=== PATIENT | male | born 1970 | race Caucasian/White ===

== ENCOUNTER 2016-08-02 09:33 | Emergency (ER) | payer SELFPAY | END 2016-08-02 09:58 | disposition home or self-care (01) | LOC: BURERS 09:33 | DX: H04.301 Unspecified dacryocystitis of right lacrimal passage (principal); I10 Essential (primary) hypertension; F17.210 Nicotine dependence, cigarettes, uncomplicated; Z79.899 Other long term (current) drug therapy | CPT/HCPCS: 99283 ==

== ENCOUNTER 2016-08-04 08:08 | Emergency (ER) | payer SELFPAY ==
[2016-08-04] MEDS ORDERED: cefTRIAXone\\ROCEPHIN 1 GM VIAL ONE (08:23)
[2016-08-04] MEDS ORDERED: Ketorolac Tromethamine 60 MG/2 ML VIAL ONE (08:31)
== END 2016-08-04 08:40 | disposition home or self-care (01) ==
LOC: BURERS 08:08
DX: H00.031 Abscess of right upper eyelid (principal); I10 Essential (primary) hypertension; J44.9 Chronic obstructive pulmonary disease, unspecified; F17.210 Nicotine dependence, cigarettes, uncomplicated; F17.220 Nicotine dependence, chewing tobacco, uncomplicated
CPT/HCPCS: 87070; 87205; 96372; J0696; J1885; J2001

== ENCOUNTER 2016-08-06 11:10 | Emergency (ER) | payer SELFPAY ==
[2016-08-06] MEDS ORDERED: Lidocaine 1% w/Epinephrine 1:100K 30 ML VIAL ONE (11:27)
[2016-08-06 12:07] LABS: #Basophils 0.1 thou/uL (0.0-0.2); #Eosinphils 0.1 thou/uL (0.0-0.7); #Lymphocytes 1.5 thou/uL (1.20-3.40); #Monocytes 0.5 thou/uL (0.11-0.59); #Neutrophils 5.8 thou/uL (1.40-6.50); %Basophils 0.8 % (0.0-1.0); %Eosinophils 1.6 % (0.0-10.0); %Lymphocytes 19.3 % (21.0-51.0); %Monocytes 6.3 % (0.0-10.0); Hemoglobin 16.3 g/dL (14.0-18.0); Mean Corpuscular HGB CONC 33.4 g/dL (32.0-36.0); Mean Corpuscular Hemoglobin 30.3 pg (27.0-31.0); Mean Corpuscular Volume 90.7 fl (80.0-94.0); Mean Platelet Volume 8.7 fL (7.4-10.4); Platelet Count 214 thou/uL (130-400); RBC Distribution Width 13.4 % (11.5-14.5); Red Blood Cell (RBC) Count 5.39 mill/uL (4.70-6.10)
[2016-08-06 12:23] LABS: Anion Gap 12 mmol/L (10-20); BUN (Urea Nitrogen) 14 mg/dL (8.9-20.6); Calc. Creatinine Clearance 0 mL/min (70-130); Calcium 9.4 mg/dL (7.8-10.44); Carbon Dioxide 25 mmol/L (22-29); Chloride 104 mmol/L (98-107); Estimated GFR-MDRD Greater than 90; Glucose 133 mg/dL (70-105); Potassium 4.2 mmol/L (3.5-5.1); Sodium 137 mmol/L (136-145)
== END 2016-08-06 13:11 | disposition home or self-care (01) ==
LOC: BURERS 11:10
DX: H00.031 Abscess of right upper eyelid (principal); I10 Essential (primary) hypertension; J44.9 Chronic obstructive pulmonary disease, unspecified; F41.9 Anxiety disorder, unspecified; F17.210 Nicotine dependence, cigarettes, uncomplicated; F17.220 Nicotine dependence, chewing tobacco, uncomplicated; Z79.899 Other long term (current) drug therapy
CPT/HCPCS: 67700; 80048; 85025; 96365; J2001; J3370

== ENCOUNTER 2016-08-07 07:52 | Emergency (ER) | payer SELFPAY | END 2016-08-07 08:06 | disposition home or self-care (01) | LOC: BURERS 07:52 | DX: Z48.01 Encounter for change or removal of surgical wound dressing (principal); I10 Essential (primary) hypertension; J44.9 Chronic obstructive pulmonary disease, unspecified; F41.9 Anxiety disorder, unspecified; F17.220 Nicotine dependence, chewing tobacco, uncomplicated; Z79.82 Long term (current) use of aspirin; Z79.899 Other long term (current) drug therapy | CPT/HCPCS: 99282 ==

== ENCOUNTER 2018-04-12 12:33 | Emergency (ER) | payer SELFPAY | END 2018-04-12 13:28 | disposition home or self-care (01) | LOC: BURERS 12:33 | DX: L72.3 Sebaceous cyst (principal); I10 Essential (primary) hypertension; J44.9 Chronic obstructive pulmonary disease, unspecified; F41.9 Anxiety disorder, unspecified; F17.220 Nicotine dependence, chewing tobacco, uncomplicated; Z79.899 Other long term (current) drug therapy; Z79.82 Long term (current) use of aspirin | CPT/HCPCS: 67700 ==

== ENCOUNTER 2022-04-08 10:27 | Emergency (ER) | payer BC ==
[2022-04-08] MEDS ORDERED: Naproxen 500 MG TAB ONE (11:24)
== END 2022-04-08 11:32 | disposition home or self-care (01) ==
LOC: BURERS 10:27
DX: S83.91XA Sprain of unspecified site of right knee, initial encounter (principal); I10 Essential (primary) hypertension; J44.9 Chronic obstructive pulmonary disease, unspecified; F17.210 Nicotine dependence, cigarettes, uncomplicated; Z79.82 Long term (current) use of aspirin; Z79.899 Other long term (current) drug therapy; X50.1XXA Overexertion from prolonged static or awkward postures, initial encounter

== ENCOUNTER 2022-12-08 08:58 | Emergency (ER) | payer BC, SELFPAY ==
[2022-12-08] MEDS ORDERED: Sulfameth/Trimethoprim DS 800-160mg TAB ONE (09:38)
[2022-12-08] MEDS ORDERED: Cephalexin 250 MG CAP ONE (09:38)
== END 2022-12-08 09:41 | disposition home or self-care (01) ==
LOC: BURERS 08:58
DX: L02.01 Cutaneous abscess of face (principal); I10 Essential (primary) hypertension; F17.220 Nicotine dependence, chewing tobacco, uncomplicated
CPT/HCPCS: 99282

== ENCOUNTER 2025-03-30 11:59 | Emergency (ER) | payer SELFPAY ==
[2025-03-30] MEDS ORDERED: Lidocaine 1%/Epinephrine 1:100K 10 ML VIAL ONE (12:24)
[2025-03-30] MEDS ORDERED: Cephalexin 250 MG CAP ONE (12:40)
[2025-03-30] MEDS ORDERED: Sulfameth/Trimethoprim DS 800-160mg TAB ONE (12:41)
== END 2025-03-30 12:50 | disposition home or self-care (01) ==
LOC: BURERS 11:59
DX: L02.01 Cutaneous abscess of face (principal); I10 Essential (primary) hypertension; F17.210 Nicotine dependence, cigarettes, uncomplicated; F17.220 Nicotine dependence, chewing tobacco, uncomplicated
CPT/HCPCS: 10060